=== PATIENT | male | born 1955 | race Caucasian/White ===

== ENCOUNTER → 2016-12-08 | Outpatient (CLI) | payer OTHER ==
--- NOTE | ~2016-12-08 | US37 ---
[facility] A Service of [facility] RADIOLOGY TEXT RESULTS PATIENT: CHAYITO HATFIELD LOCATION: CNIV : 51 UNIT #: [id number] AGE: [address]: Johnson Encarnacion MD SEX: M ORDER DR: [id number] [facility]. [place], [place] [address] [id number] O MR#: [id number] Acc #: [id number] NAME: CHAYITO HATFIELD. : 1955 SEX: M STUDY DATE/TIME: 12/08/2016 9:36 UNIT: CNIV ROOM: STUDY DESCRIPTION: US Carotid W/Doppler Bilateral Attending Physician: Johnson Encarnacion M.D. Referring Physician: Johnson Encarnacion M.D. Ordering Physician: Johnson Encarnacion M.D. Primary Care Physician: Johnson Encarnacion M.D. MEDICAL IMAGING REPORT This report is preliminary unless electronic signature is present EXAM Bilateral carotid duplex HISTORY Visual disturbance. FINDINGS Duplex imaging of the carotid arteries was performed. The right common carotid artery is patent. Internal and external carotid arteries are patent with no plaque or stenosis. Velocity in the right common carotid is 53, internal is 50 and external is 86 cm/sec. Right ICA/CCA ratio is 1.3. On the left side the common carotid artery is patent. Internal and external carotid arteries are widely patent with no plaque or stenosis. Velocity in the left common carotid is 18, internal is 55, external is 82 cm/sec. Left ICA/CCA ratio is 0.9. Antegrade flow is seen in the right and left vertebral arteries. IMPRESSION Normal carotid duplex exam with no plaque or stenosis in the right or left internal carotid arteries. Antegrade flow is seen in the right and left vertebral arteries. Dictated by..Cesilia Rainey M.D. THIS IS AN ELECTRONICALLY VERIFIED REPORT Duncan Rainey M.D. at 12/13/2016 9:59 AM [facility] A Service of [facility] RADIOLOGY TEXT RESULTS PATIENT: CHAYITO HATFIELD LOCATION: CNIV : 53 UNIT #: [id number] AGE: [address]: Johnson Encarnacion MD SEX: M ORDER DR: /rnr TD: 12/09/2016 07:20 JOB #: [id number] MEDICAL IMAGING REPORT Page 1 of 1 COPY
== END | disposition home or self-care (01) ==
LOC: CNIV 11-30 15:30
DX: H53.9 Unspecified visual disturbance (principal)
CPT/HCPCS: 93880